=== PATIENT | female | born 1990 | race Caucasian/White ===

== ENCOUNTER 2018-06-21 04:49 | Emergency (ER) | payer OTHER ==
[2018-06-21 05:17] VITALS: BP 130/98; PULSE 90; TEMP 98.2; BMI 30.4
--- NOTE | 2018-06-21 05:46 | PDOC ---
History of Present Illness - General Chief Complaint: Laceration Stated Complaint: R WRIST LAC Time Seen by Provider: 06/21/18 05:09 History Source: Patient Exam Limitations: No Limitations - History of Present Illness Initial Comments: 06/21/18 05:46 Best Contact: PCP: N/A Pmhx:Asthma Pshx:0 Allergies:NKDA FH:0 Social Hx: Cigarettes/ 0 Alcohol/ social Drugs/marijuana LMP: 05/27/2018 27-year-old female who is right hand dominant presents to the emergency department complaining of a mid anterior wrist laceration 3 hours ago after a pain of window glass fell cutting her on the wrist. Bleeding controlled with direct pressure prior to her arrival. Patient is also complaining of thenar eminence numbness and tingling sensation to the right hand. Patient was seen at [facility] but walked out. Patient denies any other complaints. Last tetanus within 5 years. Procedure: Right ant wrist 2cm transverse lac Betadine prep 1% lidocaine=2cc NS irrigation/copious Betadine re-prep Wound exploration on flexion and extension/neg FB (4) 5.0 Prolene simple interrupted Bacitracin Bandaid ?Median nerve injury Timing/Duration: reports: this afternoon Past History - Past Medical History Allergies/Adverse Reactions: Allergies Allergy/AdvReac Type Severity Reaction Status Date / Time No Known Allergies Allergy Verified 06/21/18 05:17 Home Medications: Ambulatory Orders NK [No Known Home Medication] 06/21/18 - Suicide/Smoking/Psychosocial Hx Smoking History: Never smoked Have you smoked in the past 12 months: No Information on smoking cessation initiated: No Hx Alcohol Use: No Drug/Substance Use Hx: No Review of Systems - Review of Systems Able to Perform ROS?: Yes Comments:: 06/21/18 05:48 CONSTITUTIONAL: Absent: fever, chills, diaphoresis, generalized weakness, malaise, loss of appetite MUSCULOSKELETAL: right ant wrist pain + numbness/tingling sensation thenar eminence Absent: myalgia, arthralgia, joint swelling SKIN: Absent: rash, itching, pallor HEMATOLOGIC/IMMUNOLOGIC: Absent: easy bleeding, easy bruising, lymphadenopathy, frequent infections ENDOCRINE: Absent: unexplained weight gain, unexplained weight loss, heat intolerance, cold intolerance Is the patient limited [place] Citizen proficient: No *Physical Exam - Vital Signs Last Vital Signs Temp Pulse Resp BP Pulse Ox 98.2 F 90 18 130/98 100 06/21/18 04:50 06/21/18 04:50 06/21/18 04:50 06/21/18 04:50 06/21/18 04:50 - Physical Exam Comments: 06/21/18 05:48 GENERAL: Well developed, well nourished. Awake and alert. No acute distress. MUSCULOSKELETAL Right ant wrist; 2 cm transverse partial thickness lac right hand: dullness to thenar eminence/right F.R.O.M. cap refill <2sec Normal range of motion at all joints. No bony deformities or tenderness. No CVA tenderness. EXTREMITIES: No cyanosis. No clubbing. No edema. No calf tenderness. SKIN: Warm and dry. Normal capillary refill. No rashes. No jaundice. Progress Note - Progress Note Progress Note: 0642hrs: Spoke to Dr. Schaeffer. Will reach out to Dr. Oates regarding having pt f/u. 0707hrs: Patient refuses to wait for the hand surgeon called the emergency department regarding questionable median nerve injury to the right hand. Patient states she will call the hand surgeon herself. I've advised the patient to either call Dr. Oates or Dr. Brian. Phone numbers has been provided for the patient. Patient states she refuses to stay to wait for me to speak to the hand surgeon. Patient states she was doing a home. 0717hrs: As per Dr. Oates/he will see the pt 06/24/2018 in his office Pt advised *DC/Admit/Observation/Transfer Diagnosis at time of Disposition: Laceration of wrist Qualifiers: Encounter type: initial encounter Laterality: right Qualified Code(s): S61.511A - Laceration without foreign body of right wrist, initial encounter Median nerve laceration Qualifiers: Encounter type: initial encounter Laterality: right Qualified Code(s): S54.11XA - Injury of median nerve at forearm level, right arm, initial encounter - Discharge Dispostion Disposition: HOME Condition at time of disposition: Fair Decision to Admit order: No - Referrals Referrals: Idalmis Hand MD [Primary Care Provider] - Sonido Oates MD [Staff Physician] - - Patient Instructions Printed Discharge Instructions: DI for Laceration Repair Additional Instructions: Keep the incision clean and dry for 24 hours. After 24 hours, you may allow the soap and water to rinse off your incision. Avoid direct pressure of the water to the incision. Pat the incision dry with a clean clothe. Apply a small amount of bacitracin onto the incision. Cover the incision loosely with a bandaid. Take tylenol/motrin as needed for pain. Follow up with your physician or the ER in 48 hours for a wound check. Return to the ER if you notice red streaks, increase redness/swelling/severe pain to the incision. Suture removal in 11 days. As discussed, you physical examination shows a possible injury to the right median nerve causing the numbness and tingling sensation to your right hand. You insists on leaving prior to me speaking to the hand surgeon. And stated to me that you will call the hand surgeon yourself. Dr. Oates [phone]/ Dr. Brian [phone] - Post Discharge Activity
[2018-06-21] MEDS ORDERED: ACETAMINOPHEN 500 MG TABLET (FP) PO ONE (07:01)
[2018-06-21] MEDS ORDERED: ACETAMINOPHEN 325 MG TABLET (FP) ONE (07:16)
== END 2018-06-21 07:20 | disposition home or self-care (01) ==
LOC: JER 04:49
PROC: 0HQFXZZ Repair Right Hand Skin, External Approach (ICD-10-PCS; principal; 2018-06-21)
DX: S61.511A Laceration without foreign body of right wrist, initial encounter (principal); S54.11XA Injury of median nerve at forearm level, right arm, initial encounter; W25.XXXA Contact with sharp glass, initial encounter; Y93.89 Activity, other specified; Y92.89 Other specified places as the place of occurrence of the external cause
CPT/HCPCS: 12001; 99281-25